=== PATIENT | female | born 1985 | race Caucasian/White ===

== ENCOUNTER 2017-02-13 10:08 | Emergency (ER) | payer MEDICAID ==
[2017-02-13 13:03] LABS: PLATELET COUNT 274 x10^3mcL (130-400)
[2017-02-13 13:14] LABS: CALCIUM 8.6 mg/dL (8.5-10.1); CHLORIDE SERUM 101 mmol/L (98-107); CREATININE SERUM 0.8 mg/dL (0.6-1.0); GFR1 > 60 mL/min; GLUCOSE SERUM 85 mg/dL (74-106); POTASSIUM SERUM 3.3 mmol/L (3.5-5.1); SODIUM SERUM 137 mmol/L (136-145)
[2017-02-13 13:19] LABS: UA SPECIFIC GRAVITY <=1.005 (1.005-1.035); microscopic required? YES; urine erythrocyte 3+ (NEGATIVE)
[2017-02-13 13:24] LABS: ALBUMIN 3.9 g/dL (3.4-5.0); ALKALINE PHOSPHATASE 89 U/L (46-116); ALT/SGPT 35 U/L (14-59); AMYLASE 64 U/L (25-115); AST/SGOT 17 U/L (15-37); BILIRUBIN TOTAL 1.3 mg/dL (0.20-1.00); LIPASE 95 IU/L (73-393)
[2017-02-13 13:29] LABS: TOTAL PROTEIN, SERUM 8.9 g/dL (6.4-8.2)
[2017-02-13 13:58] LABS: BAND NEUTROPHIL 3 % (0-10); BASOPHIL 0 % (0-2); MONOCYTE 2 % (0-7); SEGMENTED NEUTROPHILS 88 % (37-75)
[2017-02-13 13:59] LABS: PLATELET MORPHOLOGY PLATELETS NORMAL
[2017-02-13 15:42] VITALS: BP 113/61
== END 2017-02-13 16:05 | disposition home or self-care (01) ==
LOC: ED 10:08
PROVIDERS: Specialist
DX: R19.7 Diarrhea, unspecified (principal); R11.10 Vomiting, unspecified; Z90.49 Acquired absence of other specified parts of digestive tract; Z98.890 Other specified postprocedural states
CPT/HCPCS: 83880; J1885; J2405; J7042

== ENCOUNTER 2017-04-05 04:43 | Emergency (ER) | payer MEDICAID ==
[2017-04-05 06:50] VITALS: BP 111/87
== END 2017-04-05 06:50 | disposition home or self-care (01) ==
LOC: ED 04:43
DX: J40 Bronchitis, not specified as acute or chronic (principal)
CPT/HCPCS: J7512; J7613; J7644

== ENCOUNTER 2017-09-28 08:11 | Inpatient (IN) | payer MEDICAID ==
[~2017-09-28] VITALS: Ht 154.9 cm; Wt 89.3 kg
[2017-09-28 08:15] VITALS: Ht 154.9 cm; Wt 89.3 kg
[2017-09-28 09:04] LABS: BASOPHIL % 0.3 % (0-2); PLATELET COUNT 302 x10^3mcL (130-400); RED CELL DISTRIBUTION WIDTH 13.6 % (11.5-14.5)
[2017-09-28 09:08] LABS: CALCIUM 9.3 mg/dL (8.5-10.1); CARBON DIOXIDE 26.5 mmol/L (21-32); CHLORIDE SERUM 106 mmol/L (98-107); CREATININE SERUM 0.9 mg/dL (0.6-1.0); GFR1 > 60 mL/min; GLUCOSE SERUM 112 mg/dL (74-106); POTASSIUM SERUM 4.1 mmol/L (3.5-5.1); SODIUM SERUM 141 mmol/L (136-145)
[2017-09-28 09:13] LABS: ALBUMIN 4.2 g/dL (3.4-5.0); ALKALINE PHOSPHATASE 92 U/L (46-116); ALT/SGPT 25 U/L (14-59); AST/SGOT 18 U/L (15-37); LIPASE 96 IU/L (73-393); TOTAL PROTEIN, SERUM 8.4 g/dL (6.4-8.2)
[2017-09-28 12:37] LABS: CHOLESTEROL/HDL RATIO 3.1; MAGNESIUM 2.6 mg/dL (1.8-2.4); PHOSPHOROUS 3.3 mg/dL (2.5-4.9)
[2017-09-28 12:53] LABS: T3 TOTAL 1.12 ng/mL
[2017-09-28 13:07] LABS: FREE T4 1.19 ng/dL (0.76-1.46); FREE THYROXINE INDEX 3.1 ug/dL (1.4-4.5); T4(THYROXINE) 9.1 ug/dL (4.7-13.3)
[2017-09-28 14:15] VITALS: BP 118/54
[2017-09-28 18:00] VITALS: BP 113/57
[2017-09-28 18:14] LABS: microscopic required? NO
[2017-09-28 18:27] LABS: UA SPECIFIC GRAVITY 1.025 (1.005-1.035); urine erythrocyte NEGATIVE (NEGATIVE)
[2017-09-28 18:35] LABS: AMPHETAMINE QUAL UR NONE DETECTED (NEG <=1000)
[2017-09-28 21:00] VITALS: BP 127/72
[2017-09-29 04:59] VITALS: BP 120/39
[2017-09-29 07:26] LABS: BASOPHIL % 0.6 % (0-2); PLATELET COUNT 232 x10^3mcL (130-400); RED CELL DISTRIBUTION WIDTH 13.6 % (11.5-14.5)
[2017-09-29 08:07] LABS: CALCIUM 7.8 mg/dL (8.5-10.1); CARBON DIOXIDE 25.9 mmol/L (21-32); CHLORIDE SERUM 113 mmol/L (98-107); CREATININE SERUM 0.7 mg/dL (0.6-1.0); GFR1 > 60 mL/min; GLUCOSE SERUM 79 mg/dL (74-106); MAGNESIUM 2.3 mg/dL (1.8-2.4); PHOSPHOROUS 3.3 mg/dL (2.5-4.9); POTASSIUM SERUM 4.1 mmol/L (3.5-5.1); SODIUM SERUM 144 mmol/L (136-145)
[2017-09-29 10:33] VITALS: BP 113/68
[2017-09-29 12:19] VITALS: BP 113/63
[2017-09-29 16:20] VITALS: BP 113/63
== END 2017-09-29 16:51 | disposition home or self-care (01) | DRG 247 ==
LOC: ED 08:11 → DU 11:17
PROVIDERS: Emergency Medicine; Family Medicine
DX: K56.7 Ileus, unspecified (principal); E83.41 Hypermagnesemia; D64.9 Anemia, unspecified; E83.51 Hypocalcemia; E78.5 Hyperlipidemia, unspecified; E66.9 Obesity, unspecified; Z68.38 Body mass index [BMI] 38.0-38.9, adult; Z86.718 Personal history of other venous thrombosis and embolism
CPT/HCPCS: 83880; 84439; J1644; J1885; J2270; J2405; J3010; J3490; J7030; Q0092; Q9967

== ENCOUNTER 2019-02-08 09:29 | Emergency (ER) | payer MEDICAID ==
[~2019-02-08] VITALS: Ht 154.9 cm; Wt 90.4 kg
[2019-02-08 09:30] VITALS: Ht 154.9 cm; Wt 90.4 kg
[2019-02-08 11:34] VITALS: BP 108/57
== END 2019-02-08 11:52 | disposition home or self-care (01) ==
LOC: ED 09:29
DX: J02.9 Acute pharyngitis, unspecified (principal); Z90.49 Acquired absence of other specified parts of digestive tract; Z98.890 Other specified postprocedural states

== ENCOUNTER 2020-01-20 16:35 | Emergency (ER) | payer MEDICAID ==
[~2020-01-20] VITALS: Ht 154.9 cm; Wt 84.4 kg
[2020-01-20 16:48] VITALS: BP 128/67; Ht 154.9 cm; Wt 84.4 kg
== END 2020-01-20 19:03 | disposition home or self-care (01) ==
LOC: ED 16:35
DX: M79.662 Pain in left lower leg (principal); Z86.718 Personal history of other venous thrombosis and embolism
CPT/HCPCS: Q0092